=== PATIENT | male | born 1940 | race Caucasian/White ===

== ENCOUNTER 2019-07-21 04:19 | Emergency (ER) | payer MEDICARE, SELFPAY ==
[2019-07-21 04:20] VITALS: BP 147/69; PULSE 58; RESP 12; O2SAT 94
[2019-07-21 04:24] LABS: Glucose Point of Care 116 (65-105)
--- NOTE | 2019-07-21 04:25 | ED.RECABL ---
HPI - Recheck/Abnormal Lab/Rx General Chief Complaint: Recheck/Abnormal Lab/Rx <Dennys Rey MD - Last Filed: 07/26/19 20:04> Stated Complaint: low blood sugar <Dennys Rey MD - Last Filed: 07/26/19 20:04> Time Seen by Provider: 07/21/19 08:17 <Dennys Rey MD - Last Filed: 07/26/19 20:04> History of Present Illness HPI narrative: 79 yo male w/ h/o type II DM BIBEMS from home for c/o hypoglycemia. He was reportedly unresponsive at home this morning. When EMS arrived they found that his glucose was 35. He was given d10 in route and mental status improved. On arrival here glucose is 116. He reports taking humolog and lantus as prescribed. He does report recent intentional weight loss of 20 pounds. He denies any recent illness. <Dennys Rey MD - Last Filed: 07/26/19 20:04> Related Data Allergies/Adverse Reactions: Allergies Allergy/AdvReac Type Severity Reaction Status Date / Time No Known Allergies Allergy Verified 07/21/19 07:30 <Dennys Rey MD - Last Filed: 07/26/19 20:04> Review of Systems Review of Systems: All systems reviewed & are unremarkable except as noted in HPI and below <Dennys Rey MD - Last Filed: 07/26/19 20:04> Constitutional: Constitutional: Denies fever(s) <Dennys Rey MD - Last Filed: 07/26/19 20:04> Cardiovascular: Cardiovascular: Denies chest pain <Dennys Rey MD - Last Filed: 07/26/19 20:04> Respiratory: Respiratory: Denies dyspnea <Dennys Rey MD - Last Filed: 07/26/19 20:04> Gastrointestinal: Gastrointestinal: Denies abdominal pain, Denies nausea and Denies vomiting <Dennys Rey MD - Last Filed: 07/26/19 20:04> Neurologic: Denies weakness <Dennys Rey MD - Last Filed: 07/26/19 20:04> [facility] Past Medical History Medical History: Medical History (Updated 07/22/19 @ 00:00 by Background Daemon) CVA (cerebral vascular accident) Type II diabetes mellitus Ulcerative colitis <Dennys Rey MD - Last Filed: 07/26/19 20:04> Surgical History Surgical History: Surgical History (Updated 07/21/19 @ 04:33 by Dennys Rey MD) Failed CABG (coronary artery bypass graft) <Dennys Rey MD - Last Filed: 07/26/19 20:04> Social History Social History: Social History (Updated 07/21/19 @ 04:33 by Dennys Rey MD) Smoking status: Former smoker <Dennys Rey MD - Last Filed: 07/26/19 20:04> Exam Const: General: no acute distress and alert <Dennys Rey MD - Last Filed: 07/26/19 20:04> Orientation/consciousness: patient oriented x3 <Dennys Rey MD - Last Filed: 07/26/19 20:04> HENMT: Mouth: Yes dry mucous membranes <Dennys Rey MD - Last Filed: 07/26/19 20:04> Resp: Effort & Inspection: normal respiratory effort <Dennys Rey MD - Last Filed: 07/26/19 20:04> Auscultation: clear to auscultation bilaterally <Dennys Rey MD - Last Filed: 07/26/19 20:04> Cardio: Rate: regular rate <Dennys Rey MD - Last Filed: 07/26/19 20:04> Rhythm: regular rhythm <Dennys Rey MD - Last Filed: 07/26/19 20:04> GI: Inspection: non-distended <Dennys Rey MD - Last Filed: 07/26/19 20:04> Other: NT <Dennys Rey MD - Last Filed: 07/26/19 20:04> Skin: General skin exam: normal color <Dennys Rey MD - Last Filed: 07/26/19 20:04> Neuro: General: patient oriented x3, moves all extremities, no focal motor deficits and CN's II-XI intact bilaterally <Dennys Rey MD - Last Filed: 07/26/19 20:04> Speech: normal speech <Dennys Rey MD - Last Filed: 07/26/19 20:04> Psych: Affect: normal affect <Dennys Rey MD - Last Filed: 07/26/19 20:04> Course Course Emergency Course: I assumed care of this patient at shift change., Patient states he is feeling better now. He stated that his taken 50 units of Lantus insulin along with Humalog l
[2019-07-21 04:40] LABS: Basophils Percent Auto 0.4 % (0.2-1.2); Eosinophils Absolute Auto 0.1 K/mm3 (0-0.3); Eosinophils Percent Auto 0.7 % (0-4.4); Hematocrit 42.5 % (42.0-52.0); Hemoglobin 13.6 g/dL (14.0-18.0); Immature Granulocyte Absolute 0.06 K/mm3 (0.00-0.031); Immature Granulocyte Percent A 0.5 % (0-0.5); Lymphocytes Absolute Auto 1.66 K/mm3 (0.9-3.2); Lymphocytes Percent Auto 14.7 % (18.3-44.2); Mean Corpuscular Hemoglobin 31.3 pg (26-34); Mean Corpuscular Volume 97.7 fl (80-100); Monocytes Absolute Auto 0.9 K/mm3 (0.1-0.6); Monocytes Percent Auto 8.1 % (2.6-8.5); Neutrophils Absolute Auto 8.6 K/mm3 (1.3-6.7); Neutrophils Percent Auto 75.6 % (45.5-73.1); Platelet Count Result 162 k/mm3 (150-375); Red Blood Count 4.35 M/mm3 (4.6-6.20); Red Cell Distribution Width 13.9 % (11.5-14.5); White Blood Count 11.3 K/mm3 (4.5-10.0)
[2019-07-21 04:55] LABS: Blood Urea Nitrogen 13 mg/dL (9-20); Calcium 8.8 mg/dL (8.4-10.2); Carbon Dioxide 33 mmol/L (22-30); Chloride 101 mmol/L (98-107); Estimated Glomerular Filt Rate > 60; Glucose 119 mg/dL (75-110); Potassium 3.1 mmol/L (3.4-5.0); Sodium 140 mmol/L (137-145)
[2019-07-21 05:08] LABS: Add Urine Microscopic? YES; Appearance Urine Clear (Clear); Bilirubin Urine Negative (Negative); Blood Urine Negative (Negative); Color Urine Yellow (Yellow); Glucose Urine UA Negative (Negative); Ketones Urine Negative (Negative); Leukocyte Esterase Ur Negative LEU/UL (Negative); Mucus Urine Rare /lpf; Nitrate Urine Negative (Negative); Protein Urine 1+ mg/dL (Negative); Specific Grav Ur 1.019 (1.001-1.035); Urobilinogen Urine Negative mg/dL (<2.0); WBC Urine 0-3 /hpf
[2019-07-21 05:19] VITALS: BP 132/57; PULSE 70; RESP 13; TEMP 36.2; O2SAT 92
[2019-07-21 06:27] LABS: Glucose Point of Care 82 (65-105)
[2019-07-21 06:27] LABS: Glucose Point of Care 102 (65-105)
[2019-07-21 06:51] VITALS: BP 150/73; PULSE 80; RESP 18; O2SAT 98
[2019-07-21 08:17] LABS: Glucose Point of Care 209 (65-105)
[2019-07-21 08:38] VITALS: BP 131/55; PULSE 74; RESP 14; O2SAT 97
== END 2019-07-21 08:49 | disposition home or self-care (01) ==
PROVIDERS: Emergency Medicine; Emergency Provider Family Medicine; PCP Internal Medicine
DX: E11.649 Type 2 diabetes mellitus with hypoglycemia without coma (principal); Z86.73 Personal history of transient ischemic attack (TIA), and cerebral infarction without residual deficits; Z87.891 Personal history of nicotine dependence; Z79.4 Long term (current) use of insulin
CPT/HCPCS: 36415; 51701; 80048; 81001; 82948; 85025; 99283

== ENCOUNTER 2019-09-01 14:13 | Emergency (ER) | payer MEDICARE, SELFPAY ==
[2019-09-01 14:24] VITALS: BP 106/50; PULSE 58; RESP 18; TEMP 36.1; O2SAT 99
[2019-09-01 14:28] LABS: Glucose Point of Care 238 (65-105)
--- NOTE | 2019-09-01 14:28 | ECG_ITS ---
Measurements Intervals [place] Rate: 60 P: 39 [place]: 172 QRS: 21 QRSD: 97 T: 184 QT: 429 QTc: 432 Interpretive Statements SINUS RHYTHM BORDERLINE ST-T WAVE ABNORMALITY- DIFFUSE LEADS BASELINE ARTIFACT- I, III, AVR, AVL BORDERLINE ECG Electronically Signed On 09-01-2019 14:39:41 CDT by Slick Taylor D.O.
[2019-09-01 14:50] LABS: Basophils Absolute Auto 0.1 K/mm3 (0.0-0.1); Basophils Percent Auto 0.5 % (0.2-1.2); Eosinophils Absolute Auto 0.1 K/mm3 (0-0.3); Eosinophils Percent Auto 0.5 % (0-4.4); Hematocrit 39.9 % (42.0-52.0); Immature Granulocyte Absolute 0.05 K/mm3 (0.00-0.031); Immature Granulocyte Percent A 0.5 % (0-0.5); Lymphocytes Absolute Auto 1.46 K/mm3 (0.9-3.2); Lymphocytes Percent Auto 13.5 % (18.3-44.2); Mean Corpuscular HGB Conc 32.6 g/dl (32-36); Mean Corpuscular Hemoglobin 31.6 pg (26-34); Mean Corpuscular Volume 96.8 fl (80-100); Mean Platelet Volume 10.3 fl (7.4-10.4); Monocytes Absolute Auto 0.8 K/mm3 (0.1-0.6); Neutrophils Absolute Auto 8.4 K/mm3 (1.3-6.7); Platelet Count Result 196 k/mm3 (150-375); Red Blood Count 4.12 M/mm3 (4.6-6.20); Red Cell Distribution Width 13.8 % (11.5-14.5); White Blood Count 10.8 K/mm3 (4.5-10.0)
--- NOTE | 2019-09-01 14:56 | ED.SYNCOPE ---
HPI - Syncope General Chief Complaint: Dizziness Stated Complaint: weak/lightheaded/dizzy Time Seen by Provider: 09/01/19 14:37 History of Present Illness HPI narrative: 79 yo male w/ h/o CVA, DM, HTn presents c/o dizziness. He was playing golf this morning and became progressively more dizzy. After only 3 holes he became unsable on his feet and had to quit playing. his symptoms have since resolved. He had a recent episode of hypoglycemia and had changes made to his insulin regimen. Since that time he has been running consistently over 200. No focal weakness, speech difficulty. Related Data Allergies Allergy/AdvReac Type Severity Reaction Status Date / Time No Known Allergies Allergy Verified 07/21/19 07:30 Review of Systems Review of Systems: All systems reviewed & are unremarkable except as noted in HPI and below Constitutional: Constitutional: Denies fever(s) and Reports weakness Cardiovascular: Cardiovascular: Denies chest pain PMFSH Past Medical History Medical History CVA (cerebral vascular accident) Type II diabetes mellitus Ulcerative colitis Surgical History Surgical History Failed CABG (coronary artery bypass graft) Social History Social History Smoking status: Former smoker Gender identity (if verbalized by the patient): Male Exam Const: General: healthy appearing, no acute distress and alert Orientation/consciousness: patient oriented x3 HENMT: Head: normal to inspection Neck: Neck: normal visual inspection and no lymphadenopathy Chest: Chest palpation & inspection: no tenderness Resp: Effort & Inspection: normal respiratory effort Auscultation: clear to auscultation bilaterally, no rales, no rhonchi and no wheezes Cardio: Jugular venous distension: no JVD Rate: regular rate Rhythm: regular rhythm Heart sounds: no murmurs GI: Inspection: non-distended GI Palp: Yes Soft to palpation and No Tenderness to palpation present (GI) Skin: General skin exam: normal color Neuro: General: patient oriented x3, moves all extremities, no focal motor deficits and CN's II-XI intact bilaterally Speech: normal speech Gait exam (Neuro): Normal gait present Extrem: General: no edema Psych: Appearance: well kempt Affect: normal affect Course Vital Signs Vital signs: Vital Signs Temperature 36.1 C L 09/01/19 14:24 Pulse Rate 58 L 09/01/19 14:24 Respiratory Rate 18 09/01/19 14:24 Blood Pressure 106/50 L 09/01/19 14:24 Pulse Oximetry 99 09/01/19 14:24 Temperature 36.1 C L 09/01/19 14:24 Pulse Rate 67 09/01/19 17:13 Respiratory Rate 16 09/01/19 17:13 Blood Pressure 131/57 L 09/01/19 17:13 Pulse Oximetry 95 09/01/19 17:13 MDM - Syncope MDM Narrative Medical decision making narrative: I suspect near syncope related to the heat and possibly high blood sugar. feeling better prior to discharge Medical Records Attestation: I reviewed the patient's medical records. Lab Data Result diagrams: 09/01/19 14:44 09/01/19 14:44 Labs: Lab Results 09/01/19 09/01/19 09/01/19 Range/Units 14:25 14:44 14:44 WBC 10.8 H (4.5-10.0) K/mm3 RBC 4.12 L (4.6-6.20) M/mm3 Hgb 13.0 L (14.0-18.0) g/dL Hct 39.9 L (42.0-52.0) % MCV 96.8 (80-100) fl MCH 31.6 (26-34) pg MCHC 32.6 (32-36) g/dl RDW 13.8 (11.5-14.5) % Plt Count 196 (150-375) k/mm3 MPV 10.3 (7.4-10.4) fl Immature Gran % (Auto) 0.5 (0-0.5) % Neut % (Auto) 78.0 H (45.5-73.1) % Lymph % (Auto) 13.5 L (18.3-44.2) % [place] % (Auto) 7.0 (2.6-8.5) % Eos % (Auto) 0.5 (0-4.4) % Baso % (Auto) 0.5 (0.2-1.2) % Lymph # (Auto) 1.46 (0.9-3.2) K/mm3 [place] # (Auto) 0.8 H (0.1-0.6) K/mm3 Eos # (Auto) 0.1 (0-0.3) K/mm3 Baso # (Auto) 0.1 (0.0-0.1)
[2019-09-01 15:09] LABS: Blood Urea Nitrogen 16 mg/dL (9-20); Calcium 8.8 mg/dL (8.4-10.2); Carbon Dioxide 23 mmol/L (22-30); Chloride 102 mmol/L (98-107); Estimated CRCL calculation 45 ml/min; Estimated Glomerular Filt Rate > 60; Glucose 260 mg/dL (75-110); Sodium 136 mmol/L (137-145)
[2019-09-01] MEDS: SODIUM CHLORIDE 0.9% IV 1,000 ML 999 ML IV CONT (15:10)
[2019-09-01 15:12] VITALS: BP 129/60; PULSE 67
[2019-09-01 15:14] VITALS: BP 105/50; PULSE 65
[2019-09-01 15:16] VITALS: BP 105/58; PULSE 74
[2019-09-01 16:31] VITALS: BP 147/90; PULSE 74; RESP 20; O2SAT 93
[2019-09-01 17:13] VITALS: BP 131/57; PULSE 67; RESP 16; O2SAT 95
== END 2019-09-01 17:14 | disposition home or self-care (01) ==
PROVIDERS: Emergency Provider Emergency Medicine; PCP Internal Medicine
DX: R55 Syncope and collapse (principal); Z86.73 Personal history of transient ischemic attack (TIA), and cerebral infarction without residual deficits; E11.9 Type 2 diabetes mellitus without complications; I10 Essential (primary) hypertension; Z87.891 Personal history of nicotine dependence; R94.31 Abnormal electrocardiogram [ECG] [EKG]
CPT/HCPCS: 36415; 80048; 82948; 85025; 93005; 96360; 99284; J7030

== ENCOUNTER 2021-05-05 10:30 | Emergency (ER) | payer MEDICARE, SELFPAY ==
[2021-05-05] VITALS (14 sets, daily range): BP systolic 123–175; BP diastolic 68–82; PULSE 55–89; RESP 10–20; TEMP 36.3–36.6; O2SAT 90–100
--- NOTE | ~2021-05-05 | XR_ITS ---
XR chest 2V DATE: 05/05/2021 14:26 INDICATION: Cough. History of smoking, diabetes mellitus. TECHNIQUE: AP and lateral views COMPARISON: None FINDINGS: Status post sternotomy and coronary bypass graft surgery. Heart size appears normal. There is extensive thoracic and abdominal aortic calcification. No hilar or mediastinal enlargement is evid ent. No pulmonary infiltrate or consolidation, pleural effusion or pulmonary vascular congestion or pneumo thorax is detected. There is mild elevation of the left leaf of the diaphragm. There is a prominent f luid level in the stomach. Diffuse osteopenia. Degenerative disc disease of the cervical spine. IMPRESSION: No active cardiac pulmonary disease Status post coronary artery bypass graft surgery Aortic calcification Osteopenia Reviewed, dictated and finalized at location A. R COVERING INSTALLER
--- NOTE | ~2021-05-05 | CT_ITS ---
EXAMINATION: CT abdomen pelvis wo con EXAM DATE: 05/05/2021 11:22 INDICATION: Constipation . TECHNIQUE: Spiral CT of the abdomen and pelvis was performed without contrast. Axial, coronal and s agittal images of the abdomen and pelvis were reviewed. The dose-length product (DLP) for this exami nation was 278.66 mGy-cm. The exposure was tailored according to patient size (auto mA exposure cont rol), and iterative reconstruction (ASIR) was used as additional dose reduction technique. There is no prior study for comparison. FINDINGS: Large mass or conglomerate of masses in the right liver lobe measuring 8 x 12 cm, could be hepatocellular cancer or other malignancy. Benign histology less likely. Metastatic disease also poss ible although no other evidence of metastatic disease. Pancreas, adrenal glands, spleen are unremarkable. There is cholelithiasis within an otherwise unrem arkable gallbladder. No evidence of obstructive biliary disease. There is no nephrolithiasis or hyd ronephrosis. There is mild prostatomegaly. The bladder is unremarkable. There is no retroperitone al or pelvic lymphadenopathy. There is moderate scattered arteriosclerotic disease. Large amount of arteriosclerosis of the common iliac arteries and proximal aspect superficial femoral arteries. There are no findings to suggest appendicitis. The stomach and small bowel are unremarkable. There is moderate amount of colonic stool. There is mild scattered colonic diverticulosis. There is no adj acent inflammatory change to suggest diverticulitis. No free intraperitoneal gas. The heart is nor mal in size. There are no pericardial or pleural effusions. The lung bases are unremarkable. There are no osteoblastic or osteolytic lesions identified. Moderate to severe lower lumbar disc disease. IMPRESSION: 1. 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 Recommend chest x-ray. 2. Severe common iliac, proximal SFA arteriosclerosis. 3. Moderate colonic stool. 4. Cholelithiasis. Reviewed, dictated and finalized at location B. TING MATERIAL CARRIER IMPRESSION: 1. Right liver lobe mass or conglomerate of masses up to 12 cm, most likely ma lignant histology; consider ultrasound-guided biopsy. Recommend chest x-ray. 2. Severe common iliac, proximal SFA arteriosclerosis. 3. Moderate colonic stool. 4. Cholelithiasis.
--- NOTE | 2021-05-05 11:24 | ED.ABDPAIN ---
HPI - Abdominal Pain General Chief Complaint: Abdominal Pain Stated Complaint: bowel issues Time Seen by Provider: 05/05/21 11:11 Source: patient and family () Mode of arrival: ambulatory Limitations: no limitations History of Present Illness HPI narrative: Patient is an 81-year-old male complaining of constipation, has not had a bowel movement in weeks . Patient states that he has been taking MiraLAX but no relief. Patient denies any abdominal pain, nausea or vomiting. Patient denies any chest pain, shortness of breath, urinary symptoms, fever or chills. Related Data Allergies Allergy/AdvReac Type Severity Reaction Status Date / Time No Known Allergies Allergy Verified 07/21/19 07:30 Review of Systems Review of Systems: All systems reviewed & are unremarkable except as noted in HPI and below Constitutional: Constitutional: Denies body ache(s), Denies chills, Denies excessive sweating, Denies fatigue, Denies fever(s), Denies headache(s), Denies lethargy, Denies malaise, Denies weakness and Denies weight loss Eyes: Eyes: Denies blurry vision, Denies change in vision and Denies loss of vision ENT: Denies dizziness, Denies ear discharge, Denies headache(s), Denies lip swelling, Denies epistaxis, Denies nasal congestion, Denies neck pain, Denies throat swelling and Denies tongue swelling Cardiovascular: Cardiovascular: Denies chest pain, Denies chest pain at rest, Denies chest pain with activity, Denies diaphoresis, Denies rapid heart rate, Denies edema, Denies irregular heart rhythm, Denies lightheadedness, Denies palpitations, Denies dyspnea and Denies dyspnea on exertion Respiratory: Respiratory: Denies chest congestion, Denies cough, Denies hemoptysis, Denies dyspnea and Denies dyspnea on exertion Gastrointestinal: Gastrointestinal: Denies abdominal pain, Denies melena, Denies hematochezia, Denies diarrhea, Denies nausea, Denies vomiting and Denies hematemesis Musculoskeletal: Musculoskeletal: Denies abnormal gait, Denies deformity, Denies joint swelling, Denies limited range of motion, Denies neck pain and Denies numbness Neurologic: Denies Abnormal speech present, Denies abnormal gait, Denies confusion, Denies dizziness, Denies headache(s), Denies focal weakness, Denies loss of vision, Denies numbness, Denies Other visual disturbances, Denies Sensory deficit (Neuro) and Denies weakness Psychiatric: Psychiatric: Denies confusion, Denies depression, Denies auditory hallucinations, Denies homicidal ideation and Denies suicidal ideation Endocrine: Endocrine: Denies cold intolerance, Denies excessive sweating, Denies fatigue, Denies heat intolerance and Denies palpitations Hematologic/Lymphatic: Hematologic/Lymphatic: Denies easy bleeding and Denies easy bruising Allergic/Immunologic: Allergic/Immunologic: Denies lip swelling, Denies throat swelling and Denies tongue swelling [facility] Past Medical History Medical History (Updated 05/05/21 @ 15:41 by Bogdan Strickland MD) CVA (cerebral vascular accident) Type II diabetes mellitus Ulcerative colitis Surgical History Surgical History Failed CABG (coronary artery bypass graft) Social History Social History Smoking status: Former smoker Gender identity (if verbalized by the patient): Male Exam Const: General: cooperative, healthy appearing, comfortable, no acute distress, well developed, alert and awake; No confusion Orientation/consciousness: oriented to person, oriented to place, oriented to time, patient oriented x3 and No confusion Limitations: no limitations HENMT: Head: normal to inspection, normocephalic and atraumatic Ears: hearing grossly normal bilaterally, TM normal on the right and TM normal on the left General nose exam: Normal external nose present, Normal nares present and No nasal discharge present Face and sinus: normal facial exam Joy
--- NOTE | 2021-05-05 11:33 | PCCCNOTE ---
Asked by pre-registration to meet with patient and about living will, health care power of insurance attorney. Met with patient at bedside and Ella. Explained health care power of insurance attorney and living will to patient. Patient was concerned that if he signs and he is of able mind that he wouldn't make his own healthcare decisions. program and research coordinator educated and reassured patient that healthcare power of insurance attorney is only for when he could not express his wishes. Showed patient the paperwork, walked through and explained the paper work to patient. Provided paperwork to his and explained that if that is something that he would want to do today healthcare educator could assist or can take the paperwork home and have time to think about it. Patient is going to cat scan.
[2021-05-05] MEDS: LACTATED RINGERS 1,000 ML 999 ML IV CONT (11:36)
[2021-05-05 11:38] LABS: Basophils Absolute Auto 0.1 K/mm3 (0.0-0.1); Basophils Percent Auto 0.9 % (0.2-1.2); Eosinophils Absolute Auto 0.2 K/mm3 (0-0.3); Eosinophils Percent Auto 1.9 % (0-4.4); Hemoglobin 14.5 g/dL (14.0-18.0); Immature Granulocyte Absolute 0.04 K/mm3 (0.00-0.031); Immature Granulocyte Percent A 0.4 % (0-0.5); Lymphocytes Percent Auto 22.6 % (18.3-44.2); Mean Corpuscular HGB Conc 32.2 g/dl (32-36); Mean Corpuscular Hemoglobin 30.3 pg (26-34); Mean Corpuscular Volume 93.9 fl (80-100); Mean Platelet Volume 9.3 fl (7.4-10.4); Monocytes Percent Auto 10.3 % (2.6-8.5); Neutrophils Absolute Auto 6.2 K/mm3 (1.3-6.7); Neutrophils Percent Auto 63.9 % (45.5-73.1); Platelet Count Result 235 k/mm3 (150-375); Red Blood Count 4.79 M/mm3 (4.6-6.20); Red Cell Distribution Width 14.9 % (11.5-14.5); White Blood Count 9.7 K/mm3 (4.5-10.0)
[2021-05-05 11:52] LABS: Alanine Aminotransferase 24 U/L (4-50); Albumin Level 4.2 g/dL (3.5-5.1); Alkaline Phosphatase 237 U/L (38-126); Anion Gap 7 mmol/L (8-16); Aspartate Amino Transferase 40 U/L (17-59); Bilirubin,Total 0.7 mg/dL (0.2-1.3); Blood Urea Nitrogen 18 mg/dL (9-20); Calcium 9.2 mg/dL (8.4-10.2); Carbon Dioxide 29 mmol/L (22-30); Chloride 101 mmol/L (98-107); Estimated CRCL calculation 61 ml/min; Estimated Glomerular Filt Rate > 60; Glucose 181 mg/dL (65-110); Lipase 122 U/L (23-300); Potassium 4.5 mmol/L (3.4-5.0); Sodium 137 mmol/L (137-145)
[2021-05-05] MEDS: MAGNESIUM CITRATE 300 ML BTL PO (13:35)
[2021-05-05] MEDS: polyethylene glycoL 3350 17 GM POWD.PACK PO (14:30)
[2021-05-05] MEDS: DOCUSATE SODIUM 100 MG CAPSULE 200 MG PO (15:45)
== END 2021-05-05 17:04 | disposition home or self-care (01) ==
PROVIDERS: Emergency Provider Emergency Medicine; PCP Internal Medicine
DX: K59.00 Constipation, unspecified (principal); R16.0 Hepatomegaly, not elsewhere classified; Z86.73 Personal history of transient ischemic attack (TIA), and cerebral infarction without residual deficits; E11.9 Type 2 diabetes mellitus without complications; Z87.891 Personal history of nicotine dependence; K80.20 Calculus of gallbladder without cholecystitis without obstruction; I70.8 Atherosclerosis of other arteries; I70.203 Unspecified atherosclerosis of native arteries of extremities, bilateral legs; Z95.1 Presence of aortocoronary bypass graft; M85.88 Other specified disorders of bone density and structure, other site; I70.0 Atherosclerosis of aorta
CPT/HCPCS: 36415; 71046; 74176; 80053; 83690; 85025; 96360; 99284; A9270; J7120

== ENCOUNTER 2021-05-22 07:09 | Outpatient (CLI) | payer MEDICARE, SELFPAY ==
[2021-05-16 12:58] VITALS: BMI 21.6
--- NOTE | 2021-05-16 13:04 | PC.NURSE ---
Report to the Outpatient Waiting Room, entrance under the green pavilion located off [facility], at time _729 on date __05/22/21 . OR Time: . - You and your visitor will be asked a series of questions to screen for COVID 19 for your protection. - A mask is required within the hospital. Preoperative COVID Testing Requirements: No COVID Test needed if: (proof is required; if not received patient will have Rapid Test prior to entry) - Patient has received COVID Vaccine at least 14 days prior to procedure date or - Patient has positive COVID test result within last 90 days of surgery date. COVID Test needed if above criteria is not met If not COVID vaccinated a COVID test must be conducted within 72 hours of surgery and patient is asked to isolate self from time of testing until procedure. You will go to the [facility] for your COVID testing. The [facility] is located at the corner of [address] [facility]. You will only be called if COVID results are positive and your surgeon may reschedule your elective surgery date. - NOTHING TO EAT OR DRINK 6 HOURS PRIOR TO PROCEDURE Take the following medications with a SIP of water the morning of surgery: NONE Medications to discontinue per physician ASPIRIN 7 DAYS PRE OP AND PLAVIX 5 DAYS PRE OP Date to take last dose_ASPIRIN 05/14/21, PLAVIX 05/16/21 Please no make-up, nail persian, hairspray, perfume, deodorant, or body powder the day of surgery. No jewelry (including any body piercings) or valuables the day of surgery, leave them at home. Please take a shower or bath the night before, or the morning of, surgery with an antibacterial soap. Wear comfortable, loose fitting clothing. Children are encouraged to wear pajamas. - Jewelry must be removed prior to entering the operating room. Rings and piercings that are not removed may be cut off. - The hospital will not accept responsibility for valuables. - Please leave all valuables, including medications, at home the day of surgery. If you are going home after surgery, a licensed truck driver helper must drive you home. - NO public transportation without another adult. - We recommend that an adult stay with you for 24 hours following discharge. - We also recommend that you do not drive, make important decision, drink alcoholic beverages, or take any drugs that were not prescribed by your health care provider for at least 24 hours after your discharge time. One visitor will be allowed to accompany the patient into the hospital. Patients visitor will be instructed to remain with patient at all times or leave the building. We will allow the visitor to come back to the postoperative area when patient is ready. Follow any additional instructions given to you from your surgeon. Telephone instructions given to _PT'S DEVANG and asked if any additional questions and then verbalized understanding. Patient advised to call surgeon office or pre surgery nurse liaison [phone] if any additional questions.
[2021-05-22] VITALS (10 sets, daily range): BP systolic 119–168; BP diastolic 54–84; PULSE 62–71; RESP 20; TEMP 36; O2SAT 97–100
--- NOTE | ~2021-05-22 | US_ITS ---
EXAMINATION: US biopsy liver DATE: 05/22/2021 10:06 INDICATION: Liver mass TECHNIQUE: The procedure including the risks and benefits was discussed with the patient. Risks discu ssed included bleeding and infection. The patient understood the risks and agreed to proceed. The sk in overlying the liver was prepped and draped in usual sterile fashion. Anesthetic was administered with 1% lidocaine subcutaneously. An 18 gauge core biopsy needle was advanced under continuous ultra sound observation to the lesion of interest. 3 core biopsy specimens were obtained. The needle was removed and the entry site was cleaned and dressed. Post procedure ultrasound demonstrated no hemorr merna. FINDINGS: Ultrasound images demonstrate at least 8.3 cm hyperechoic mass with lobular margins in the inferior right hepatic lobe. Subsequent images demonstrate biopsy needle advanced into the mass. IMPRESSION: 1. Successful Ultrasound-guided biopsy of a large mass in the right hepatic lobe. Reviewed, dictated and finalized at location A. HANDLER IMPRESSION: 1. Successful Ultrasound-guided biopsy of a large mass in the right hepatic lob e.
[2021-05-22 08:24] LABS: Mean Platelet Volume 9.4 fl (7.4-10.4); Platelet Count Result 264 k/mm3 (150-375)
[2021-05-22 08:54] LABS: Prothrombin Time 12.8 Seconds (11.1-14.7)
[2021-05-22 10:13] LABS: Glucose Point of Care 173 mg/dl (65-105)
--- NOTE | 2021-05-22 14:50 | SUR.PHASEII ---
DR WATKINS CAME AND SPOKE WITH PATIENT BEFORE DISCHARGE. PT DISCHARGED HOME WITH .
== END 2021-05-22 14:00 | disposition home or self-care (01) ==
PROVIDERS: PCP Internal Medicine; Visit Provider Radiology Diagnostic Radiology
PROC: BF45ZZZ Ultrasonography of Liver (ICD-10-PCS; CPT 47000; principal; 2021-05-22 09:30)
DX: K76.89 Other specified diseases of liver (principal)
CPT/HCPCS: 36415; 47000; 76942; 82948; 85049; 85610; 88307; 88342